=== PATIENT | male | born 1970 | race Caucasian/White ===

== ENCOUNTER 2025-04-19 08:31 | Emergency (ER) | payer SELFPAY ==
--- NOTE | ~2025-04-19 | XR_ITS ---
EXAMINATION: XR FINGER, RIGHT CLINICAL INFORMATION: Laceration on index finger COMPARISON: None available. TECHNIQUE: Review is of the right index finger. FINDINGS: Bone alignment is normal. No fracture or dislocation. Normal joint spaces. There is evidence of trauma to the palmar distal second finger. No radiopaque soft tissue foreign body seen. XR/XR finger RT min 2V IMPRESSION: No fracture or foreign body. Electronically signed by: Clementina Gama MD 04/19/2025 09:16 AM EDT
[2025-04-19 08:44] VITALS: BP 184/97; PULSE 72; RESP 18; TEMP 37; O2SAT 98; BMI 22.9
--- NOTE | 2025-04-19 11:07 | PC.NURSE ---
Ptawaiting provider. NAD- dsgon finger intact with no new bleeding showing. CMS remains intact.
--- NOTE | 2025-04-19 11:22 | ED.WOUNDLAC ---
HPI - Wound/Laceration General Chief Complaint: Wound/Laceration Stated Complaint: finger lac Time Seen by Provider: 04/19/25 10:38 Source: patient, RN notes reviewed and old records reviewed Mode of arrival: ambulatory Limitations: no limitations History of Present Illness ED Provider: KAVITHA Vela HPI narrative: 54-year-old male with medical history of HTN presents to the ED due to laceration of the 2nd digit of the right hand after pushing trash down and cutting the finger on a can of cat food. Patient cannot remember when last Tdap was. Related Data Previous Rx's ?Medication ?Instructions ?Recorded amlodipine 5 mg tablet 5 mg PO DAILY 30 days #30 tabs 03/20/25 cephalexin 500 mg capsule 500 mg PO BID 7 days #14 caps 04/19/25 doxycycline hyclate 100 mg capsule 100 mg PO BID 7 days #14 caps 04/19/25 Allergies Allergy/AdvReac Type Severity Reaction Status Date / Time No Known Allergies (No Known Allergy Verified 04/19/25 08:50 Allergies*) Review of Systems Review of Systems: CONST: Negative for fever, body aches and chills. HENT: Negative for neck pain/stiffness, headache, congestion, sore throat, swelling. EYES: Negative for discharge/pain or vision changes. RESP: Negative for cough/hemoptysis and shortness of breath. CV: Negative chest pain, difficulty breathing, palpitations. ABD: Negative pain, nausea, vomiting. : Negative increase frequency, dysuria, blood in urine or stool. MUSC: Negative for muscle aches, edema. POS laceration of R hand 2nd digit SKIN: Negative rash, lesions/sores. NEURO: Negative headache, dizziness, weakness. Yes all other systems are reviewed and are negative PMFSH Past Medical History Attestation statement: The following information was validated with the patient. Source: old records reviewed and nursing notes reviewed Medical History Eye problem HTN (hypertension) Family History Family History Father HTN (hypertension) Mother HTN (hypertension) Sister HTN (hypertension) Social History Social History Household Members: Spouse and Children Housing: House Alcohol intake: current Alcohol intake frequency: holidays/special occasions only Cigarettes Per Day: 20 Years Smoked: 20 Advance Directives: No Advance Directives Information Provided: No service: Yes Current occupational status: employed Current occupation: [employer] driver Sexual orientation: Straight/Heterosexual Gender identity: Female Physical Exam Vital Signs: Vital Signs: Last Vital Signs Temp 97.9 F 04/19/25 12:21 Pulse 59 04/19/25 12:21 Resp 18 04/19/25 12:21 BP 140/85 H 04/19/25 12:21 Pulse Ox 99 04/19/25 12:21 O2 Del Method Room Air 04/19/25 12:21 BMI result Body Mass Index 22.9 GENERAL APPEARANCE: ?AxOx4, generally well-appearing, no acute distress. HEENT: ?NC, AT. MMM. EOMI, clear conjunctiva, oropharynx clear. NECK: ?Supple without lymphadenopathy.? No stiffness or restricted ROM. HEART:? Normal rate and regular rhythm, normal S1/S2, no m/r/g LUNGS:? CTAB, moving air well. No crackles or wheezes are heard. EXTREMITIES: ?Without cyanosis, clubbing or edema. R hand 2nd digit with linear, horizontal laceration over the distal finger tip, actively bleeding, SILT, ROM intact, radial pulses 2+ NEUROLOGICAL: ?Grossly nonfocal. Alert and oriented, moving all 4 extremities. Observed to ambulate with normal gait. Skin: ?Warm and dry without any rash. Medications Administered Discontinued Medications Generic Name Dose Route Start Last Admin Trade Name Freq PRN Reason Stop Dose Admin Diphtheria/Tetanus/Acell Pertussis 0.5 ml 04/19/25 11:18 04/19/25 11:24 Diphth,Pertus(Acell),Tet Adult 0.5 Ml Syringe IM 04/19/25 11:19 0.5 ml .ONCE ONE Administration Lidocaine HCl 5 ml 04/19/25 11:22 04/19/25 12:02 Lidocaine Hcl 1 % Mpf 5 Ml Vial SUBCUT 04/19/25 11:23 5 ml ONCE ONE Administration Medical Decision Making Medical Decision Making MDM Narrative: 54-year-old male with medical history of HTN presents to the ED due to laceration of the 2nd digit of the right hand after pushing trash down and cutting the finger on a can of cat food. Patient cannot remember when last Tdap was. VS on initial observation-BP 184/97, pulse rate of 72, respiratory rate of 18, afebrile with oral temp of 98.6?, O2 saturation 98% on room air. On physical exam R hand 2nd digit with linear, horizontal laceration over the distal finger tip, actively bleeding, SILT, ROM intact, radial pulses 2+ Finger extensively irrigated with sterile saline and iodine. Differential Diagnosis Differential Diagnoses: The differential diagnosis associated with the presentation includes Laceration Foreign body Tendon rupture Admission/Observation Consideration of admission/observation: Escalation of care including admission/observation considered Lab Data MDM Lab Attestation statement: I reviewed the patient's lab results. Independent Interpretation I performed an independent interpretation of an: Plain X-Ray Interpretation: I personally interpreted the x-ray of right finger which was negative for fracture, dislocation, or foreign body, I agree with the radiologist's interpretation Radiology Impression Discussion of test interpretation with radiology: I have reviewed the radiologist's reading. Radiologist Impression: XR R finger FINDINGS: Bone alignment is normal. No fracture or dislocation. Normal joint spaces. There is evidence of trauma to the palmar distal second finger. No radiopaque soft tissue foreign body seen. XR/XR finger RT min 2V IMPRESSION: No fracture or foreign body. Electronically signed by: Clementina Gama MD 04/19/2025 09:16 AM EDT Dictated By: Clementina Gama MD Signed By: <Electronically signed by Clementina Gama MD in [place]> 04/19/25 0916 External Record Review External record reviewed: Inpatient record, Office record and Outpatient record Chronic Conditions Patient?s care impacted by: Hypertension Social Determinants Patient?s care significantly limited by Social Determinants of Health including: Other Social Determinant of Health Procedures Laceration Laceration 1: Site: hand Side (If applicable): right Size (cm): 1.5 Description: linear Depth: simple, single layer Local Anesthetic: lidocaine 1% Amount of anesthesia used (mL): 5 Pre-repair: wound explored, irrigated extensively and deep structures intact Skin layer closed with: nylon Size (cm): 4-0 Number of sutures: 7 Technique: simple, interrupted Discharge Plan Discharge Clinical Impression: Laceration Patient Disposition: Home, Self-Care Additional Instructions: You were evaluated in the ED after sustaining a laceration to the 2nd digit of the right hand. The x-ray was negative for retained foreign body or fracture/dislocation. The finger was irrigated extensively with sterile saline and iodine to clean the area. You were medicated in the department with tetanus shot. You received 7 stitches, bacitraicin was applied and the finger wrapped in a bandage. Please keep this bandage on for the next 24 hours, do not get the finger wet. The stiches will stay in place for the next 10-14 days. You can return to the ED or urgent care for removal. To manage pain and swelling at home take 500mg tylenol and 400mg ibuprofen every 6 hours, you can ice and elevate the area. Please return to the ED if you experience increased swelling, increased pain, pus-like drainage, redness, warmth or any new/worsening/concerning symptoms. Prescriptions: New cephalexin 500 mg capsule 500 mg PO BID 7 Days Qty: 14 0RF doxycycline hyclate 100 mg capsule 100 mg PO BID 7 Days Qty: 14 0RF No Action amlodipine 5 mg tablet 5 mg PO DAILY 30 Days Qty: 30 1RF Stand Alone Forms: Work/School Release Interventions: ED Discharge Assessment Last Done: 04/19/25 12:21 Discharge Date/Time: 04/19/25 12:24 Print Language: Arabic
[2025-04-19] MEDS: Diphth,Pertus(ACell),Tet Adult 0.5 ML SYRINGE IM (11:24)
[2025-04-19] MEDS: Lidocaine HCl 1 % MPF 5 ML VIAL SUBCUT (12:02)
[2025-04-19 12:17] VITALS: BP 140/85; PULSE 59; RESP 18; TEMP 36.6; O2SAT 99
[2025-04-19 12:21] VITALS: BP 140/85; PULSE 59; RESP 18; TEMP 36.6; O2SAT 99
== END 2025-04-19 12:24 | disposition home or self-care (01) ==
PROVIDERS: Emergency Provider Emergency Medicine; PCP Family Medicine
DX: S61.210A Laceration without foreign body of right index finger without damage to nail, initial encounter (principal); M79.641 Pain in right hand; W26.9XXA Contact with unspecified sharp object(s), initial encounter; Y93.9 Activity, unspecified; Y92.9 Unspecified place or not applicable; Y99.8 Other external cause status; Z23 Encounter for immunization
CPT/HCPCS: 12001; 73140; 90471; 90715; 99283; 99284; J2003

== ENCOUNTER → 2025-04-19 09:00 | Outpatient (BNV) | payer SELFPAY | PROVIDERS: PCP Family Medicine; Visit Provider Radiology Diagnostic Radiology | DX: S61.210A Laceration without foreign body of right index finger without damage to nail, initial encounter (principal) | CPT/HCPCS: 73140 ==